=== PATIENT | male | born 1955 | race Caucasian/White ===

== ENCOUNTER 2017-01-21 13:51 | Emergency (ER) | payer OTHER ==
[2017-01-21] MEDS ORDERED: OXYMETAZOLINE NASAL SPRAY 15 ML BTTL ONE (14:13)
[2017-01-21 14:23] VITALS: TEMP 98.3
--- NOTE | 2017-01-21 14:42 | ED.PDOC ---
History of Present Illness - General Chief Complaint: ENT Problem Stated Complaint: NOSEBLEED Time Seen by Provider: 01/21/17 14:11 Source: patient Exam Limitations: no limitations Additional Information: NO H/O EPISTAXIS. 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 WAS DRIVING HIS CAR. NO TRAUMA. DENIES BLOOD THINNERS. BL BLEEDING. RUNNING ANTERIORLY AND POSTERIOR OROPHARYNX. - History of Present Illness Timing/Duration: abrupt Severity: severe EENT Location: nose Prearrival Treatment: no prearrival treatment Allergies/Adverse Reactions: Allergies NO KNOWN ALLERGY Allergy (Verified 01/21/17 14:17) Home Medications: Ambulatory Orders Cholesterol Med PO DAILY 01/21/17 Review of Systems - Review of Systems Constitutional: Denies: chills, fever, weakness EENTM: Denies: blurred vision, ear pain, ear discharge Respiratory: States: no symptoms reported Cardiology: States: no symptoms reported Gastrointestinal/Abdominal: States: no symptoms reported Genitourinary: States: no symptoms reported Musculoskeletal: States: no symptoms reported Skin: States: no symptoms reported Neurological: States: no symptoms reported Endocrine: States: no symptoms reported Hematologic/Lymphatic: States: no symptoms reported. Denies: anemia, easy bleeding, easy bruising All other Systems: Reviewed and Negative Past Medical History (General) - Patient Medical History Hx Stroke: No Hx Cardiac Disorders: Yes - hypercholesterolemia Hx Congestive Heart Failure: No Hx Diabetes: No - Vaccination History Hx Tetanus, Diphtheria Vaccination: No Hx Influenza Vaccination: Yes - 2016 Hx Pneumococcal Vaccination: No - Social History Hx Tobacco Use: No Family Medical History - Family History Father Living Status: Still Living Hx Cardiac Disease: Yes Physical Exam - Physical Exam General Appearance: Alert, Well Nourished Eye Exam: bilateral normal Ear Exam: bilateral ear: TM normal Nasal Exam: active bleeding, other - BL ACTIVE BLEEDING ANTERIORLY (AND NOTED IN POSTERIOR OROPHARYNX AFTER I HAD DRINK WATER TO CLEAR THROAT). DUE TO BRISK BLEED, I AM UNABLE TO ASSESS SOURCE. DUE TO SEVERITY OF , IT IS LIKELY POSTERIOR IN ADDITION TO KESSELBACH'S PLEXUS. Throat Exam: other - ACTIVE BLEEDING FROM NOSE. Neck: non-tender, full range of motion, supple, normal inspection Cardiovascular/Respiratory: regular rate, rhythm, no M/R/G Neurologic: rubber heel and sole press tender II-XII nml as tested, no motor/sensory deficits, alert, oriented x 3 Skin Exam: normal color, warm/dry Progress - Progress Progress: 01/21/17 14:46 PINCHED BL NASES FOR 15 MIN WITH DEVICE. THEN SPRAYED BL NOSTRILS WITH AFRIN. BLEEDING PERSISTED, THUS INSERTED NASAL TAMPON BL FOLLOWS. I HAD PT BLOW RIGHT NOSTRIL TO CLEAR OUT BLOOD. I THEN APPLIED AFRIN NASAL SPRAY TO RAPID RHINO 7.5 CM, INSERTED INTO R NARE, THEN INFLATED WITH AIR USING A SYRINGE. THEN THE SAME PROCESS WAS PERFORMED ON LEFT SIDE. GOOD HEMOSTASIS FOLLOWED. Departure - Departure Clinical Impression: Severe epistaxis Disposition: Discharge to Home or Self Care Condition: Good Departure Forms: ED Discharge - Pt. Copy, Patient Portal Self Enrollment Instructions: DI for Nosebleed Diet: regular diet Activity: increase activity as tolerated Home Medications: Ambulatory Orders Cholesterol Med PO DAILY 01/21/17 Additional Instructions: Please leave the nasal tampon in the nose for at least 24 hours. Please see your regular doctor tomorrow to have them removed. If you are unable to get in to see him, please go to a local urgent/acute care clinic or return to our ER for removal. Then use a humidifier at nighttime to keep the air moist. Use nasal saline spray daily and apply a thin layer of vaseline jelly daily to keep the nostrils (septum) moist. Please follow-up with your regular doctor if the bleeds recur.
[2017-01-21 15:22] VITALS: BP 125/91; O2SAT 93
== END 2017-01-21 15:12 | disposition home or self-care (01) ==
LOC: ER 13:51
DX: R04.0 Epistaxis (principal); E78.00 Pure hypercholesterolemia, unspecified; Z79.899 Other long term (current) drug therapy